=== PATIENT | female | born 1960 | race Caucasian/White ===

== ENCOUNTER 2020-09-20 15:21 | Outpatient (RCR) | payer BC, SELFPAY ==
[2020-09-20] MEDS: COVID-19 VACC, MRNA(PFIZER)/PF 30 MCG/0.3 ML SYRINGE IM (10:23)
[2020-10-11] MEDS: COVID-19 VACC, MRNA(PFIZER)/PF 30 MCG/0.3 ML SYRINGE IM (10:08)
== END 2020-09-20 23:59 ==
LOC: IMMUN 15:21
PROVIDERS: PCP Nurse Practitioner Primary Care; Referring Provider Family Medicine; Visit Provider Family Medicine
DX: Z23 Encounter for immunization (principal)
CPT/HCPCS: 0001A; 0002A; 91300